=== PATIENT | female | born 1960 | race Two or more races ===

== ENCOUNTER 2022-11-26 05:29 | Day surgery (SDC) | payer MEDICAID ==
[2022-11-26] VITALS (8 sets, daily range): BP systolic 111–148; BP diastolic 58–71
[~2022-11-26] VITALS: Ht 149.9 cm; Wt 66.5 kg
[~2022-11-26 05:29] MED LIST: ringers solution, lacted 1,000 ML IV SCH
[2022-11-26] MEDS ORDERED: famotidine 20mg tablet PO ONE (05:30)
[2022-11-26] MEDS ORDERED: INSU100V9 SQ (06:06)
[2022-11-26] MEDS ORDERED: COLL30OI TOP (06:06)
[2022-11-26] MEDS ORDERED: AMOX-580 PO (06:06)
--- NOTE | 2022-11-26 06:30 | NUR ---
INITIATED IV RFA 20G , NO ISSUES.. STARTED TKO
[2022-11-26] MEDS ORDERED: BUPIVAcaine 0.5% inj/PF 30 ML ONE (06:55)
[2022-11-26] MEDS ORDERED: fentaNYL/PF 50MCG/1 ML 2ML syringe ONE (07:25)
[2022-11-26] MEDS ORDERED: propofol inj 20 ML IV ONE (07:26)
[2022-11-26] MEDS ORDERED: sevoflurane 250ml liquid IH ONE (07:36)
[2022-11-26] MEDS ORDERED: ringers solution, lacted 1,000 ML IV SCH (07:40)
[2022-11-26] MEDS ORDERED: proCHLORperazine 10 MG/2 ml inj IV PRN (07:40)
[2022-11-26] MEDS ORDERED: meperidine/PF 25mg/ml syringe IV PRN ×3 (07:40)
[2022-11-26] MEDS ORDERED: morphine 4 MG/ML inj SYRINge IV PRN (07:40)
[2022-11-26] MEDS ORDERED: ondansetron/PF 4mg/2ml inj IV PRN (07:40)
[2022-11-26] MEDS ORDERED: morphine 2 MG/ML inj. syringe IV PRN (07:40)
[2022-11-26] MEDS ORDERED: ceFAZolin 1000mg inj ONE ×2 (07:40)
[2022-11-26] MEDS ORDERED: BUPIVAcaine 0.5% inj/PF 30 ml vial IJ ONE (07:53)
[2022-11-26] MEDS ORDERED: vancomycin 1,000mg inj ONE (07:53)
--- NOTE | 2022-11-26 08:10 | NUR ---
Received from OR via BED, accompanied by Anesthesiologist and report given by Anesthesiologist. PATIENT WAKING UP, NO S/S OF PAIN, V/S WNL, SCD ON, 20G TO rUE, dressing to left foot cdi
--- NOTE | 2022-11-26 08:43 | NUR ---
blood sugar 198 dr cisse notified and stated patient ok to d/c home and to resume her lantus normal dose tonight
--- NOTE | 2022-11-26 08:50 | NUR ---
patient given crutches to ambulate and educated on how to use them.
--- NOTE | 2022-11-26 09:00 | NUR ---
PATIENT A&OX4, DENIES PAIN, V/S WNL, SCD ON, 20G TO rUE D/C, dressing to left foot cdi. I HAVE REVIEWED D/C INSTRUCTIONS WITH PATIENT and they have verbalized understanding. I GAVE CRUTCHES TO patient AND d/c home with all belongings and family gave transport home.
== END 2022-11-26 09:00 | disposition home or self-care (01) ==
LOC: PAS 05:29
PROVIDERS: ATTEND Orthopaedic Surgery Orthopaedic Trauma
DX: E11.69 Type 2 diabetes mellitus with other specified complication (principal); M86.172 Other acute osteomyelitis, left ankle and foot; E11.621 Type 2 diabetes mellitus with foot ulcer; L97.524 Non-pressure chronic ulcer of other part of left foot with necrosis of bone; E11.52 Type 2 diabetes mellitus with diabetic peripheral angiopathy with gangrene; I96 Gangrene, not elsewhere classified; D63.8 Anemia in other chronic diseases classified elsewhere; E87.1 Hypo-osmolality and hyponatremia; Z79.4 Long term (current) use of insulin; Z79.899 Other long term (current) drug therapy
CPT/HCPCS: 28820; 82948; A6222; J0690; J2704; J3010; J3370; J7030; J7120; S0020; Z7506; Z7512; A4215; A4618; A6446; A6449; A7000

== ENCOUNTER 2022-12-09 08:55 | Inpatient (IN) | payer MEDICAID ==
[~2022-12-09] VITALS: Ht 154.9 cm; Wt 65.5 kg
[~2022-12-09 08:55] MED LIST changes: +AMOX-580 PO; +COLL30OI TOP; +INSU100V9 SQ; -ringers solution, lacted 1,000 ML IV SCH
[2022-12-09] MEDS ORDERED: potassium Cl 20 mEq SR tablet PO PRN ×2 (09:35)
[2022-12-09] MEDS ORDERED: magnesium 4gm in 100ml NS 100 ML IV PRN (09:35)
[2022-12-09] MEDS ORDERED: morphine 2 MG/ML inj. syringe IV PRN (09:35)
[2022-12-09] MEDS ORDERED: ondansetron/PF 4mg/2ml inj IV PRN (09:35)
[2022-12-09] MEDS ORDERED: acetaminophen 325mg tablet PO PRN ×2 (09:35)
[2022-12-09] MEDS ORDERED: potassium Cl 40MEQ/1/2NS 520ml 520 ML IV PRN (09:35)
[2022-12-09] MEDS ORDERED: magnesium Cl slow-release 64mg tablet PO PRN (09:35)
[2022-12-09] MEDS: normal saline 1000ml 1,000 ML IV SCH ×2 (09:35→21:30)
[2022-12-09] MEDS ORDERED: DEXTROSE 15 GM of carb/4 tabs (each vial/BOTTLE has 4 tablets) PO PRN ×2 (09:45)
[2022-12-09] MEDS ORDERED: glucagon, human recombinant 1mg kit SUBCUT PRN (09:45)
[2022-12-09] MEDS ORDERED: MESSAGE TO PHARMACY PO ONE (09:45)
[2022-12-09] MEDS ORDERED: dextrose 50%-water 50ml dispensing syringe IV PRN ×2 (09:45)
[2022-12-09] MEDS ORDERED: vancomycin/NS 1 GM ADD-VANTAGE 250 ML IV ONE (11:45)
[2022-12-09] MEDS: HYDROcodone/acetaminophen 5mg/325mg tablet PO PRN (11:48)
--- NOTE | 2022-12-09 12:06 | NUR ---
Called pharmacy to retime Zosyn because patient just got to the floor and has no IV and now has Vancomycin ordered. Pharmacist will retime.
[2022-12-09 12:17] LABS: BASOPHILS # (AUTO) 0.1 X10'3 (0-0.2); BASOPHILS % (AUTO) 0.4 % (0-1); EOSINOPHILS % (AUTO) 0 % (0-6); HEMATOCRIT 31.9 % (35.0-45.0); HEMOGLOBIN 10.3 g/dl (12.0-16.0); LYMPHOCYTES # (AUTO) 0.8 X10'3 (1.1-4.8); LYMPHOCYTES % (AUTO) 3.3 % (21-51); MEAN CORPUSCULAR HEMOGLOBIN 27.8 PG (27.0-31.0); MEAN CORPUSCULAR HGB CONC 32.3 g/dL (33.0-36.5); MEAN PLATELET VOLUME 8.4 FL (7.4-10.4); MONOCYTES % (AUTO) 4.4 % (2-12); NEUTROPHILS % (AUTO) 91.9 % (42-75); PLATELET COUNT 553 X10'3 (140-440); RED BLOOD COUNT 3.71 X10'6 (4.20-5.60); WHITE BLOOD COUNT 22.8 X10'3 (4.5-11.0)
[2022-12-09] MEDS: piperacillin/tazo 3.375gm/50ml 50 ML IV SCH ×2 (12:54→16:00)
[2022-12-09 13:00] VITALS: BP 123/60
[2022-12-09 14:00] VITALS: BP 150/75
[2022-12-09 14:04] LABS: ALANINE AMINOTRANSFERASE 11 U/L (12-78); ALBUMIN 2.1 G/DL (3.4-5.0); ALBUMIN/GLOBULIN RATIO 0.3 (1.1-1.5); ALKALINE PHOSPHATASE 378 IU/L (46-116); ANION GAP 11 (8-16); ASPARTATE AMINO TRANSFERASE 15 U/L (10-37); BILIRUBIN,TOTAL 0.9 MG/DL (0.1-1.0); BLOOD UREA NITROGEN 8 MG/DL (7-18); BUN/CREATININE RATIO 11.1 (6.6-38.0); CALCIUM 9.3 MG/DL (8.5-10.1); CHLORIDE 89 MMOL/L (99-107); CREATININE 0.72 MG/DL (0.40-0.90); GLUCOSE 251 MG/DL (70-104); POTASSIUM 4.4 MMOL/L (3.5-5.1); SODIUM 125 MMOL/L (135-145); TOTAL CARBON DIOXIDE 24.9 MMOL/L (24-32); TOTAL PROTEIN 8.5 G/DL (6.4-8.2); eGFR 82 ML/MIN
[2022-12-09] MEDS ORDERED: ACET-1015 PO (16:50)
[2022-12-09] MEDS ORDERED: OMEP20CA16 PO (16:51)
[2022-12-09 18:00] VITALS: BP 129/60
--- NOTE | 2022-12-09 18:30 | NUR ---
Patient in room [facility]. I have received report from POOJA Theodore and had the opportunity to ask questions and assume patient care.
[2022-12-09] MEDS: insulin Lispro (HumaLOG) vial - multi-dose SQ SCH (19:29)
[2022-12-09] MEDS: heparin, porcine 5000 units/ml vial SQ SCH (19:30)
[2022-12-09] MEDS ORDERED: temazepam 15mg capsule PO PRN (21:00)
[2022-12-09] MEDS: insulin glargine (Lantus) pen - multi-dose SQ SCH (21:28)
[2022-12-09 22:00] VITALS: BP 130/66
[2022-12-10] MEDS: piperacillin/tazo 3.375gm/50ml 50 ML IV SCH ×3 (00:05→18:56)
[2022-12-10] MEDS: vancomycin/NS 1 GM ADD-VANTAGE 250 ML IV SCH ×2 (00:32→13:32)
[2022-12-10] MEDS: normal saline 1000ml 1,000 ML IV SCH ×2 (05:35→15:35)
[2022-12-10 06:00] VITALS: BP 128/58
--- NOTE | 2022-12-10 06:31 | NUR ---
Problems reprioritized. Patient report given, questions answered & plan of care reviewed with POOJA Salazar.
--- NOTE | 2022-12-10 06:58 | NUR ---
Patient in room [facility]. I have received report from AMA PATTON and had the opportunity to ask questions and assume patient care.
[2022-12-10 07:00] LABS: ALANINE AMINOTRANSFERASE 8 U/L (12-78); ALBUMIN 1.6 G/DL (3.4-5.0); ALBUMIN/GLOBULIN RATIO 0.3 (1.1-1.5); ALKALINE PHOSPHATASE 321 IU/L (46-116); ANION GAP 8 (8-16); ASPARTATE AMINO TRANSFERASE 21 U/L (10-37); BILIRUBIN,TOTAL 0.9 MG/DL (0.1-1.0); BLOOD UREA NITROGEN 10 MG/DL (7-18); BUN/CREATININE RATIO 14.9 (6.6-38.0); CHLORIDE 94 MMOL/L (99-107); CREATININE 0.67 MG/DL (0.40-0.90); GLUCOSE 106 MG/DL (70-104); SODIUM 129 MMOL/L (135-145); TOTAL CARBON DIOXIDE 27.2 MMOL/L (24-32); TOTAL PROTEIN 6.8 G/DL (6.4-8.2); eGFR 89 ML/MIN
[2022-12-10 07:01] LABS: BASOPHILS % (AUTO) 0.2 % (0-1); EOSINOPHILS % (AUTO) 0.1 % (0-6); HEMATOCRIT 24.7 % (35.0-45.0); HEMOGLOBIN 8.3 g/dl (12.0-16.0); LYMPHOCYTES # (AUTO) 1.2 X10'3 (1.1-4.8); LYMPHOCYTES % (AUTO) 5.8 % (21-51); MEAN CORPUSCULAR HEMOGLOBIN 28.7 PG (27.0-31.0); MEAN CORPUSCULAR HGB CONC 33.6 g/dL (33.0-36.5); MEAN CORPUSCULAR VOLUME 85.4 FL (78-98); MONOCYTES # (AUTO) 1.1 X10'3 (0-0.9); MONOCYTES % (AUTO) 5.2 % (2-12); NEUTROPHILS # (AUTO) 18.9 X10'3 (1.8-7.7); NEUTROPHILS % (AUTO) 88.7 % (42-75); PLATELET COUNT 426 X10'3 (140-440); RED CELL DISTRIBUTION WIDTH 15.4 % (11.5-14.5); WHITE BLOOD COUNT 21.3 X10'3 (4.5-11.0)
[2022-12-10] MEDS: heparin, porcine 5000 units/ml vial SQ SCH ×2 (09:26→22:37)
[2022-12-10 10:00] VITALS: BP 131/66
[2022-12-10] MEDS: HYDROcodone/acetaminophen 5mg/325mg tablet PO PRN (13:32)
[2022-12-10] MEDS: insulin Lispro (HumaLOG) vial - multi-dose SQ SCH ×2 (15:08→19:51)
[2022-12-10 18:00] VITALS: BP 128/62
--- NOTE | 2022-12-10 18:30 | NUR ---
Patient in room [facility]. I have received report from Marie PATTON and had the opportunity to ask questions and assume patient care.
[2022-12-10] MEDS ORDERED: pantoprazole 40mg Tablet.DR PO PRN (18:55)
[2022-12-10 22:00] VITALS: BP 131/60
[2022-12-10] MEDS: insulin glargine (Lantus) pen - multi-dose SQ SCH (22:35)
[2022-12-11] MEDS ORDERED: VANCOMYCIN LEVEL IV ONE (00:30)
[2022-12-11] MEDS: piperacillin/tazo 3.375gm/50ml 50 ML IV SCH ×3 (01:00→16:37)
[2022-12-11] MEDS: normal saline 1000ml 1,000 ML IV SCH ×3 (01:01→21:02)
[2022-12-11 01:40] LABS: BASOPHILS % (AUTO) 0.2 % (0-1); EOSINOPHILS % (AUTO) 0.1 % (0-6); HEMATOCRIT 23.7 % (35.0-45.0); HEMOGLOBIN 7.9 g/dl (12.0-16.0); LYMPHOCYTES % (AUTO) 4.8 % (21-51); MEAN CORPUSCULAR HEMOGLOBIN 28.4 PG (27.0-31.0); MEAN CORPUSCULAR HGB CONC 33.3 g/dL (33.0-36.5); MEAN CORPUSCULAR VOLUME 85.3 FL (78-98); MONOCYTES % (AUTO) 4.7 % (2-12); NEUTROPHILS # (AUTO) 18.6 X10'3 (1.8-7.7); NEUTROPHILS % (AUTO) 90.2 % (42-75); PLATELET COUNT 427 X10'3 (140-440); RED BLOOD COUNT 2.77 X10'6 (4.20-5.60); RED CELL DISTRIBUTION WIDTH 15.5 % (11.5-14.5); WHITE BLOOD COUNT 20.7 X10'3 (4.5-11.0)
[2022-12-11] MEDS: vancomycin/NS 1 GM ADD-VANTAGE 250 ML IV SCH ×2 (01:40→14:26)
[2022-12-11 01:51] LABS: ALANINE AMINOTRANSFERASE 10 U/L (12-78); ALBUMIN 1.6 G/DL (3.4-5.0); ALBUMIN/GLOBULIN RATIO 0.3 (1.1-1.5); ALKALINE PHOSPHATASE 327 IU/L (46-116); ASPARTATE AMINO TRANSFERASE 17 U/L (10-37); BILIRUBIN,TOTAL 0.7 MG/DL (0.1-1.0); BLOOD UREA NITROGEN 11 MG/DL (7-18); BUN/CREATININE RATIO 16.9 (6.6-38.0); CALCIUM 8.3 MG/DL (8.5-10.1); CREATININE 0.65 MG/DL (0.40-0.90); GLUCOSE 145 MG/DL (70-104); TOTAL CARBON DIOXIDE 24.2 MMOL/L (24-32); TOTAL PROTEIN 6.7 G/DL (6.4-8.2); eGFR > 90 ML/MIN
[2022-12-11 01:52] LABS: ANION GAP 9 (8-16); CHLORIDE 96 MMOL/L (99-107); POTASSIUM 3.9 MMOL/L (3.5-5.1); SODIUM 129 MMOL/L (135-145); VANCOMYCIN,TROUGH 15.5 UG/ML (6.0-14.0)
[2022-12-11 06:00] VITALS: BP 140/72
--- NOTE | 2022-12-11 06:52 | NUR ---
Problems reprioritized. Patient report given, questions answered & plan of care reviewed with Amalia PATTON.
--- NOTE | 2022-12-11 06:52 | NUR ---
Patient in room [facility]. I have received report from Roxana PATTON and had the opportunity to ask questions and assume patient care.
[2022-12-11] MEDS: heparin, porcine 5000 units/ml vial SQ SCH ×2 (07:18→21:07)
[2022-12-11] MEDS: insulin Lispro (HumaLOG) vial - multi-dose SQ SCH (09:41)
--- NOTE | 2022-12-11 10:16 | NUR ---
full linen changed
--- NOTE | 2022-12-11 11:00 | NUR ---
VS not done, patient at procedure Addendum: 12/11/22 at 1821 by Meghann Gibbs LVN Amended: Links added.
[2022-12-11] MEDS: HYDROcodone/acetaminophen 5mg/325mg tablet PO PRN (16:36)
--- NOTE | 2022-12-11 17:22 | NUR ---
Patients pain level went down from what it was before the norco was administered. It was at ten but she stated that it was now at an eight. Patient was resting comfortably.
--- NOTE | 2022-12-11 17:52 | NUR ---
I have reviewed and agree with all interventions, assessments performed and documented by NICK Zavaleta.
--- NOTE | 2022-12-11 18:32 | NUR ---
Problems reprioritized. Patient report given, questions answered & plan of care reviewed with Abdullahi PATTON.
--- NOTE | 2022-12-11 18:40 | NUR ---
Patient in room [facility]. I have received report from REA PATTON and had the opportunity to ask questions and assume patient care.
[2022-12-11] MEDS: insulin glargine (Lantus) pen - multi-dose SQ SCH (21:19)
[2022-12-12] MEDS: piperacillin/tazo 3.375gm/50ml 50 ML IV SCH ×3 (00:58→16:00)
[2022-12-12] MEDS: vancomycin/NS 1 GM ADD-VANTAGE 250 ML IV SCH ×2 (01:03→13:00)
--- NOTE | 2022-12-12 06:27 | NUR ---
Problems reprioritized. Patient report given, questions answered & plan of care reviewed with REA PATTON.
--- NOTE | 2022-12-12 06:31 | NUR ---
Patient in room [facility]. I have received report from Abdullahi PATTON and had the opportunity to ask questions and assume patient care.
[2022-12-12 06:50] LABS: BASOPHILS # (AUTO) 0.1 X10'3 (0-0.2); BASOPHILS % (AUTO) 0.4 % (0-1); EOSINOPHILS % (AUTO) 0.3 % (0-6); HEMATOCRIT 22.4 % (35.0-45.0); HEMOGLOBIN 7.5 g/dl (12.0-16.0); LYMPHOCYTES % (AUTO) 6.3 % (21-51); MEAN CORPUSCULAR HEMOGLOBIN 28.9 PG (27.0-31.0); MEAN CORPUSCULAR HGB CONC 33.6 g/dL (33.0-36.5); MEAN PLATELET VOLUME 8.1 FL (7.4-10.4); MONOCYTES # (AUTO) 0.8 X10'3 (0-0.9); MONOCYTES % (AUTO) 4.9 % (2-12); NEUTROPHILS # (AUTO) 13.9 X10'3 (1.8-7.7); NEUTROPHILS % (AUTO) 88.1 % (42-75); PLATELET COUNT 404 X10'3 (140-440); RED CELL DISTRIBUTION WIDTH 15.6 % (11.5-14.5); WHITE BLOOD COUNT 15.8 X10'3 (4.5-11.0)
[2022-12-12 07:18] LABS: ALANINE AMINOTRANSFERASE 9 U/L (12-78); ALBUMIN 1.4 G/DL (3.4-5.0); ALBUMIN/GLOBULIN RATIO 0.3 (1.1-1.5); ALKALINE PHOSPHATASE 433 IU/L (46-116); ANION GAP 7 (8-16); ASPARTATE AMINO TRANSFERASE 24 U/L (10-37); BILIRUBIN,TOTAL 0.7 MG/DL (0.1-1.0); BLOOD UREA NITROGEN 15 MG/DL (7-18); BUN/CREATININE RATIO 12.3 (6.6-38.0); CALCIUM 8.1 MG/DL (8.5-10.1); CHLORIDE 101 MMOL/L (99-107); CHOL/HDL RATIO 3.5 (0.00-4.99); CHOLESTEROL 78 MG/DL (0-200); CREATININE 1.22 MG/DL (0.40-0.90); GLUCOSE 97 MG/DL (70-104); HDL CHOLESTEROL 22 MG/DL (35-60); LDL CHOLESTEROL 39 MG/DL (50-100); MAGNESIUM 1.9 MG/DL (1.5-2.4); PHOSPHORUS 3.7 MG/DL (2.3-4.5); POTASSIUM 3.8 MMOL/L (3.5-5.1); SODIUM 131 MMOL/L (135-145); TOTAL CARBON DIOXIDE 23.3 MMOL/L (24-32); TOTAL PROTEIN 6.5 G/DL (6.4-8.2); TRIGLYCERIDES 73 MG/DL (20-135); eGFR 44 ML/MIN
[2022-12-12] MEDS: normal saline 1000ml 1,000 ML IV SCH (07:33)
[2022-12-12] MEDS: heparin, porcine 5000 units/ml vial SQ SCH (07:34)
[2022-12-12 07:39] LABS: HEMOGLOBIN A1C 9.5 % (4.5-6.2)
[2022-12-12] MEDS ORDERED: VANCOMYCIN LEVEL IV ONE (12:30)
--- NOTE | 2022-12-12 13:20 | NUR ---
Message: Shayy Surg [id number] Vanco trough critical 32.6, Pharmacy aware holding dose
--- NOTE | 2022-12-12 13:20 | NUR ---
Marni the pharmacist aware of critical vanco trough of 32.6 hold 1300 dose he will adjust medication
[2022-12-12] MEDS ORDERED: LINE600T12 PO (14:21)
[2022-12-12] MEDS ORDERED: LACT1CAP26 PO (14:21)
--- NOTE | 2022-12-12 16:05 | NUR ---
PRESSURE ULCER EDUCATION: DEFINITION: A pressure ulcer is an area of skin that breaks down when you stay in one position too long. The constant pressure against the skin reduces the blood flow to that area and the affected tissue dies. CAUSES: "Being bedridden or in a wheelchair "Fragile skin "Having a chronic condition, such as diabetes or vascular disease "Inability to move certain parts of your body without assistance "Older age "Incontinence of urine or stool SYMPTOMS: "A reddened area that DOES NOT turn white when pressed on - this can be the beginning of a pressure ulcer "A blister, deep sore or a crater - these can be advanced pressure ulcers FIRST AID: "Relieve the pressure on this area "Keep the area clean and dry "Call your primary doctor if you see any of the above symptoms "DO NOT massage the area "DO NOT use a donut shaped or ring shaped pillow- these actually interfere with the blood flow and cause complications PREVENTION: "Check for pressure ulcers everyday "Change position at least every two hours to relieve pressure "Use items that help relieve pressure- pillows, sheepskin, foam padding, and powders. "Keep skin clean and dry "Eat healthy well balanced meals "Exercise daily IF YOU SEE ANY OF THESE SYMPTOMS WHILE IN THE HOSPITAL - TELL YOUR NURSE IMMEDIATELY. IF YOU SEE ANY OF THESE SYMPTOMS WHILE AT HOME OR HAVE ANY QUESTIONS OR CONCERNS ABOUT PRESSURE ULCERS - CALL YOUR PRIMARY DOCTOR IMMEDIATELY. Addendum: 12/12/22 at 1605 by Mojgan Tolliver RN Amended: Links added.
--- NOTE | 2022-12-12 16:48 | NUR ---
Patient agreeable and appropriate for discharge. 2 PIVs removed, cannulas intact, patient tolerated well. Discharge paperwork/education reviewed/signed by patient, all questions anticipated and addressed. Encouraged patient to hand picker prescriptions from [facility] in [place]. Instructed patient to schedule and appointment for the next 2-3 days with the wound center. Patient states understanding. 1 per assist provided for transfer to w/c, patient assisted out of facility and into vehicle from staff accompanied by family.
--- NOTE | 2022-12-12 17:00 | NUR ---
I have reviewed and agree with all interventions, assessments performed and documented by NICK Zavaleta.
[2022-12-13] MEDS ORDERED: VANCOMYCIN LEVEL IV ONE (00:30)
== END 2022-12-12 16:48 | disposition home health service (06) | DRG 721 ==
LOC: SUR 3N 09:42 → UNDOADMIN 11:17 → SUR 3N 11:17
PROVIDERS: ADMIT Internal Medicine; ATTEND Internal Medicine
DX: T81.42XA Infection following a procedure, deep incisional surgical site, initial encounter (principal); N17.9 Acute kidney failure, unspecified; D63.8 Anemia in other chronic diseases classified elsewhere; L03.116 Cellulitis of left lower limb; E11.65 Type 2 diabetes mellitus with hyperglycemia; B95.2 Enterococcus as the cause of diseases classified elsewhere; Y83.8 Other surgical procedures as the cause of abnormal reaction of the patient, or of later complication, without mention of misadventure at the time of the procedure; Y92.89 Other specified places as the place of occurrence of the external cause
CPT/HCPCS: 36415; 73720; 80053; 80061; 80202; 82948; 83036; 83605; 83735; 84100; 84145; 84443; 85025; 85651; 87040; 87081; 97116; 97161; 97530; A6196; A6446; A6449; G0378; J1610; J1644; J1815; J2270; J2405; J2543; J3370; J3490; J7030; J7040

== ENCOUNTER 2022-12-17 17:39 | Emergency (ER) | payer MEDICAID ==
[~2022-12-17] VITALS: Ht 154.9 cm; Wt 60.0 kg
[~2022-12-17 17:39] MED LIST changes: -AMOX-580 PO; -COLL30OI TOP; -INSU100V9 SQ; +LACT1CAP26 PO; +LINE600T12 PO; +OMEP20CA16 PO
[2022-12-17] MEDS ORDERED: HYDROcodone/acetaminophen 5mg/325mg tablet PO ONE (21:45)
--- NOTE | 2022-12-17 21:47 | NUR ---
Pt foot rebandaged per physician. Good CSM after bandaging.
== END 2022-12-17 22:01 | disposition home or self-care (01) ==
LOC: ER 17:40
DX: Z89.412 Acquired absence of left great toe (principal); Z09 Encounter for follow-up examination after completed treatment for conditions other than malignant neoplasm; E11.9 Type 2 diabetes mellitus without complications
CPT/HCPCS: 87070; 99284; A6258; A6446

== ENCOUNTER 2022-12-18 09:08 | Inpatient (IN) | payer MEDICAID ==
[~2022-12-18] VITALS: Ht 154.9 cm; Wt 55.0 kg
[2022-12-18 10:22] LABS: BASOPHILS % (AUTO) 0.4 % (0-1); EOSINOPHILS % (AUTO) 0.7 % (0-6); HEMATOCRIT 24.5 % (35.0-45.0); LYMPHOCYTES # (AUTO) 0.8 X10'3 (1.1-4.8); LYMPHOCYTES % (AUTO) 11.6 % (21-51); MEAN CORPUSCULAR HEMOGLOBIN 28.7 PG (27.0-31.0); MEAN CORPUSCULAR HGB CONC 32.9 g/dL (33.0-36.5); MEAN CORPUSCULAR VOLUME 87.2 FL (78-98); MEAN PLATELET VOLUME 7.2 FL (7.4-10.4); MONOCYTES # (AUTO) 0.2 X10'3 (0-0.9); MONOCYTES % (AUTO) 3.4 % (2-12); NEUTROPHILS # (AUTO) 5.8 X10'3 (1.8-7.7); NEUTROPHILS % (AUTO) 83.9 % (42-75); PLATELET COUNT 341 X10'3 (140-440); RED CELL DISTRIBUTION WIDTH 16.6 % (11.5-14.5); WHITE BLOOD COUNT 6.9 X10'3 (4.5-11.0)
[2022-12-18 10:39] LABS: ALANINE AMINOTRANSFERASE 15 U/L (12-78); ALBUMIN 1.8 G/DL (3.4-5.0); ALBUMIN/GLOBULIN RATIO 0.3 (1.1-1.5); ALKALINE PHOSPHATASE 529 IU/L (46-116); ANION GAP 8 (8-16); ASPARTATE AMINO TRANSFERASE 22 U/L (10-37); BILIRUBIN,TOTAL 0.6 MG/DL (0.1-1.0); BLOOD UREA NITROGEN 13 MG/DL (7-18); BUN/CREATININE RATIO 13.1 (6.6-38.0); C-REACTIVE PROTEIN 5.91 MG/DL (0.0-0.5); CALCIUM 8.6 MG/DL (8.5-10.1); CHLORIDE 102 MMOL/L (99-107); CREATININE 0.99 MG/DL (0.40-0.90); GLUCOSE 166 MG/DL (70-104); POTASSIUM 4.1 MMOL/L (3.5-5.1); SODIUM 135 MMOL/L (135-145); TOTAL PROTEIN 7.2 G/DL (6.4-8.2); eGFR 56 ML/MIN
[2022-12-18] MEDS ORDERED: mag hydrox/Alum hydrox/simeth 30ml oral suspension PO PRN (12:30)
[2022-12-18] MEDS ORDERED: magnesium 4gm in 100ml NS 100 ML IV PRN (12:30)
[2022-12-18] MEDS ORDERED: acetaminophen 325mg tablet PO PRN (12:30)
[2022-12-18] MEDS ORDERED: glucagon, human recombinant 1mg kit SUBCUT PRN (12:30)
[2022-12-18] MEDS ORDERED: DEXTROSE 15 GM of carb/4 tabs (each vial/BOTTLE has 4 tablets) PO PRN ×2 (12:30)
[2022-12-18] MEDS ORDERED: magnesium hydroxide 30ml (MOM) UD suspension PO PRN (12:30)
[2022-12-18] MEDS ORDERED: potassium Cl 40MEQ/1/2NS 520ml 520 ML IV PRN (12:30)
[2022-12-18] MEDS ORDERED: HYDROmorphone inj. 0.5 MG/0.5 ML DISP.SYRIN IV PRN (12:30)
[2022-12-18] MEDS ORDERED: dextrose 50%-water 50ml dispensing syringe IV PRN ×2 (12:30)
[2022-12-18] MEDS ORDERED: potassium Cl 20 mEq SR tablet PO PRN ×2 (12:30)
[2022-12-18] MEDS: normal saline 1000ml 1,000 ML IV SCH (12:30)
[2022-12-18] MEDS ORDERED: MESSAGE TO PHARMACY PO ONE (12:30)
[2022-12-18] MEDS ORDERED: HYDROmorphone/PF 0.2 MG/ML SYRINGE IV PRN (12:30)
--- NOTE | 2022-12-18 13:10 | NUR ---
Patient in room [facility]. I have received report from lynne garcia and had the opportunity to ask questions and assume patient care.
[2022-12-18 13:56] VITALS: BP 142/60
[2022-12-18 18:00] VITALS: BP 146/65
--- NOTE | 2022-12-18 18:35 | NUR ---
Problems reprioritized. Patient report given, questions answered & plan of care reviewed with jos garcia.
[2022-12-18] MEDS: K and/or MAG REPLACEMENT MC SCH (20:00)
[2022-12-18] MEDS: docusate sod 100mg capsule PO SCH (20:00)
[2022-12-18] MEDS: enoxaparin 40mg/0.4ml syringe SQ SCH (20:06)
[2022-12-18] MEDS: linezolid 600mg tablet PO SCH (20:06)
[2022-12-18] MEDS: insulin glargine (Lantus) pen - multi-dose SQ SCH (21:00)
[2022-12-18 22:11] VITALS: BP 147/64
[2022-12-19] VITALS (11 sets, daily range): BP systolic 127–161; BP diastolic 61–85
[2022-12-19 04:42] LABS: BASOPHILS % (AUTO) 0.5 % (0-1); EOSINOPHILS # (AUTO) 0.1 X10'3 (0-0.9); EOSINOPHILS % (AUTO) 0.8 % (0-6); HEMOGLOBIN 7.4 g/dl (12.0-16.0); LYMPHOCYTES # (AUTO) 1.3 X10'3 (1.1-4.8); LYMPHOCYTES % (AUTO) 18.6 % (21-51); MEAN CORPUSCULAR HEMOGLOBIN 28.3 PG (27.0-31.0); MEAN CORPUSCULAR HGB CONC 32.4 g/dL (33.0-36.5); MEAN CORPUSCULAR VOLUME 87.5 FL (78-98); MEAN PLATELET VOLUME 7.2 FL (7.4-10.4); MONOCYTES # (AUTO) 0.3 X10'3 (0-0.9); NEUTROPHILS # (AUTO) 5.4 X10'3 (1.8-7.7); NEUTROPHILS % (AUTO) 76.1 % (42-75); PLATELET COUNT 302 X10'3 (140-440); RED BLOOD COUNT 2.63 X10'6 (4.20-5.60); RED CELL DISTRIBUTION WIDTH 16.9 % (11.5-14.5); WHITE BLOOD COUNT 7.1 X10'3 (4.5-11.0)
[2022-12-19 05:08] LABS: ALANINE AMINOTRANSFERASE 12 U/L (12-78); ALBUMIN 1.6 G/DL (3.4-5.0); ALBUMIN/GLOBULIN RATIO 0.3 (1.1-1.5); ALKALINE PHOSPHATASE 517 IU/L (46-116); ANION GAP 4 (8-16); ASPARTATE AMINO TRANSFERASE 22 U/L (10-37); BILIRUBIN,TOTAL 0.5 MG/DL (0.1-1.0); BLOOD UREA NITROGEN 11 MG/DL (7-18); BUN/CREATININE RATIO 12.6 (6.6-38.0); CALCIUM 8.1 MG/DL (8.5-10.1); CHLORIDE 106 MMOL/L (99-107); CREATININE 0.87 MG/DL (0.40-0.90); GLUCOSE 117 MG/DL (70-104); MAGNESIUM 1.8 MG/DL (1.5-2.4); POTASSIUM 3.9 MMOL/L (3.5-5.1); SODIUM 136 MMOL/L (135-145); TOTAL CARBON DIOXIDE 26.5 MMOL/L (24-32); TOTAL PROTEIN 6.8 G/DL (6.4-8.2); eGFR 66 ML/MIN
[2022-12-19] MEDS: normal saline 1000ml 1,000 ML IV SCH ×2 (05:42→13:30)
--- NOTE | 2022-12-19 06:10 | NUR ---
Patient in room [facility]. I have received report from POOJA Matthew and had the opportunity to ask questions and assume patient care.
--- NOTE | 2022-12-19 06:14 | NUR ---
reported to days. noted pt ready for pre op today at noon. pt has ekg ordered but needs order for coag and cxr.
[2022-12-19] MEDS: K and/or MAG REPLACEMENT MC SCH ×2 (08:00→20:00)
[2022-12-19] MEDS: docusate sod 100mg capsule PO SCH ×2 (08:30→20:32)
[2022-12-19] MEDS: linezolid 600mg tablet PO SCH ×2 (08:31→20:32)
[2022-12-19] MEDS ORDERED: INSU100V9 SQ (08:44)
[2022-12-19] MEDS ORDERED: HYDROmorphone 1 mg/ml syringe IV PRN (08:50)
[2022-12-19] MEDS ORDERED: pantoprazole 40mg Tablet.DR PO PRN (09:55)
[2022-12-19 10:44] LABS: PRE OP INR 1.2 INR; PRE OP PROTIME 12.5 SECONDS (9.0-12.0)
[2022-12-19] MEDS ORDERED: proCHLORperazine 10 MG/2 ml inj IV PRN (12:10)
[2022-12-19] MEDS ORDERED: fentaNYL/PF 50MCG/1 ML 2ML syringe IV PRN ×2 (12:10)
[2022-12-19] MEDS ORDERED: labetalol 20mg/4ml (5mg/ml) syringe IV PRN (12:10)
[2022-12-19] MEDS ORDERED: acetaminophen 1,000mg/100ml IV 100 ML IV PRN (12:10)
[2022-12-19] MEDS ORDERED: morphine 4 MG/ML inj SYRINge IV PRN (12:10)
[2022-12-19] MEDS ORDERED: meperidine/PF 25mg/ml syringe IV PRN (12:10)
[2022-12-19] MEDS ORDERED: hydrALAZINE 20mg/ml inj. IV PRN (12:10)
[2022-12-19] MEDS ORDERED: ondansetron/PF 4mg/2ml inj IV PRN (12:10)
[2022-12-19] MEDS ORDERED: ringers solution, lacted 1,000 ML IV SCH (12:10)
[2022-12-19] MEDS ORDERED: morphine 2 MG/ML inj. syringe IV PRN (12:10)
[2022-12-19] MEDS ORDERED: ondansetron/PF 4mg/2ml inj ONE (12:37)
[2022-12-19] MEDS ORDERED: sevoflurane 250ml liquid IH ONE (12:37)
[2022-12-19] MEDS ORDERED: fentaNYL/PF 50MCG/1 ML 2ML syringe ONE (12:58)
[2022-12-19] MEDS ORDERED: LIDOcaine 2% (20mg/ml) 5ml vial ONE (13:10)
[2022-12-19] MEDS ORDERED: propofol inj 20 ML IV ONE (13:10)
[2022-12-19] MEDS ORDERED: 0.9 % SODIUM CHLORIDE 10 ML VIAL ONE (13:18)
[2022-12-19] MEDS ORDERED: ePHEDrine 50MG/ML INJ. ONE (13:18)
--- NOTE | 2022-12-19 13:23 | NUR ---
Received from OR via HOSPITAL BED, accompanied by AnesthesiologistDR BUSH and report given by Anesthesiolgist. PT PRESENT WITH 20G LEFT FOREARM, DRESSING ON LEFT LFOOT CDI, VSS. Addendum: 12/19/22 at 1405 by Kami Gomez RN, RN Amended: Links added.
--- NOTE | 2022-12-19 13:53 | NUR ---
Per EMR pt with T2DM, current A1c 10.1%. Pt admit for ischemic left foot with h/o osteomyelitis and amputation of the first toe. Pt just returned from OR, s/p I&D of left foot today. Noted pt receiving Zyvox. Pt would benefit from DM and low tyramine nutrition therapy educations once appropriate. Pt on a CHO controlled diet, documented with 25% PO intake of first meal. [facility] 12/17. Will continue to follow closely and monitor need for nutrition intervention pending trends in PO intake. Recommendations: 1) Continue CHO controlled diet 2) Monitor need for ONS/additional protein 3) Routine bowel care 4) Weekly scaled weights 5) DM and low tyramine nutrition therapy educations once appropriate; A1c 10.1% Addendum: 12/19/22 at [address] Amended: Links added.
--- NOTE | 2022-12-19 14:10 | NUR ---
Received report from [facility]ING CAPTAINKami
--- NOTE | 2022-12-19 14:23 | NUR ---
Report called to receiving nurse RAHEL PATTON. Transferred via HOSPITAL BED TO ROOM 346A WITH FAMILY. BED IN LOW LOCKED POSITION WITH CALL LIGHT IN REACH, PT HOOKED UP TO VITAL MACHINE. Belongings WERE LEFT IN PT ROOM 346A. Special Issues communicated to receiving nurse. Addendum: 12/19/22 at 1442 by Kami Gomez RN, RN Amended: Links added.
[2022-12-19] MEDS ORDERED: GABA-530 PO (15:04)
[2022-12-19 15:21] LABS: HEMATOCRIT 25.5 % (35.0-45.0); HEMOGLOBIN 8.1 g/dl (12.0-16.0); MEAN CORPUSCULAR HEMOGLOBIN 28.4 PG (27.0-31.0); MEAN CORPUSCULAR HGB CONC 31.9 g/dL (33.0-36.5); MEAN CORPUSCULAR VOLUME 88.9 FL (78-98); MEAN PLATELET VOLUME 6.9 FL (7.4-10.4); PLATELET COUNT 288 X10'3 (140-440); RED BLOOD COUNT 2.87 X10'6 (4.20-5.60); RED CELL DISTRIBUTION WIDTH 16.8 % (11.5-14.5); WHITE BLOOD COUNT 7.9 X10'3 (4.5-11.0)
[2022-12-19 16:05] LABS: % IRON SATURATION 49 % (11-46); ANISOCYTOSIS 1+; IRON 83 UG/DL (49-151); PLATELET ESTIMATE NORMAL; TOTAL CELLS COUNTED 100; TOTAL IRON BINDING CAPACITY 169 UG/DL (259-388)
--- NOTE | 2022-12-19 18:19 | NUR ---
Patient in room [facility]. I have received report from POOJA Wu and had the opportunity to ask questions and assume patient care.
--- NOTE | 2022-12-19 18:20 | NUR ---
Problems reprioritized. Patient report given, questions answered & plan of care reviewed with POOJA William.
[2022-12-19] MEDS ORDERED: linezolid 600mg tablet PO SCH (20:00)
[2022-12-19] MEDS: lactobacillus rhamnosus 10,000 MMU CELLS/CAPSULE PO SCH (20:32)
[2022-12-19] MEDS: enoxaparin 40mg/0.4ml syringe SQ SCH (20:37)
[2022-12-19] MEDS: insulin glargine (Lantus) pen - multi-dose SQ SCH (21:00)
[2022-12-20] VITALS (10 sets, daily range): BP systolic 133–170; BP diastolic 64–89
[2022-12-20] MEDS: normal saline 1000ml 1,000 ML IV SCH ×2 (00:04→15:46)
[2022-12-20 04:56] LABS: BASOPHILS % (AUTO) 0.6 % (0-1); EOSINOPHILS % (AUTO) 0.5 % (0-6); HEMOGLOBIN 7.2 g/dl (12.0-16.0); LYMPHOCYTES % (AUTO) 17.4 % (21-51); MEAN CORPUSCULAR HEMOGLOBIN 28.6 PG (27.0-31.0); MEAN CORPUSCULAR HGB CONC 32.7 g/dL (33.0-36.5); MEAN CORPUSCULAR VOLUME 87.5 FL (78-98); MEAN PLATELET VOLUME 7.2 FL (7.4-10.4); MONOCYTES # (AUTO) 0.2 X10'3 (0-0.9); MONOCYTES % (AUTO) 2.8 % (2-12); NEUTROPHILS # (AUTO) 4.7 X10'3 (1.8-7.7); NEUTROPHILS % (AUTO) 78.7 % (42-75); PLATELET COUNT 228 X10'3 (140-440); RED BLOOD COUNT 2.51 X10'6 (4.20-5.60); RED CELL DISTRIBUTION WIDTH 17.2 % (11.5-14.5); WHITE BLOOD COUNT 5.9 X10'3 (4.5-11.0)
[2022-12-20 05:06] LABS: ALANINE AMINOTRANSFERASE 8 U/L (12-78); ALBUMIN 1.7 G/DL (3.4-5.0); ALBUMIN/GLOBULIN RATIO 0.3 (1.1-1.5); ALKALINE PHOSPHATASE 523 IU/L (46-116); ANION GAP 6 (8-16); ASPARTATE AMINO TRANSFERASE 22 U/L (10-37); BILIRUBIN,TOTAL 0.6 MG/DL (0.1-1.0); BLOOD UREA NITROGEN 13 MG/DL (7-18); BUN/CREATININE RATIO 14.9 (6.6-38.0); CALCIUM 8.1 MG/DL (8.5-10.1); CHLORIDE 104 MMOL/L (99-107); CREATININE 0.87 MG/DL (0.40-0.90); GLUCOSE 176 MG/DL (70-104); MAGNESIUM 1.9 MG/DL (1.5-2.4); POTASSIUM 4.5 MMOL/L (3.5-5.1); SODIUM 135 MMOL/L (135-145); TOTAL CARBON DIOXIDE 25.2 MMOL/L (24-32); TOTAL PROTEIN 6.8 G/DL (6.4-8.2); eGFR 66 ML/MIN
--- NOTE | 2022-12-20 06:24 | NUR ---
Problems reprioritized. Patient report given, questions answered & plan of care reviewed with POOJA Singer.
--- NOTE | 2022-12-20 07:03 | NUR ---
Patient in room [facility] 346. I have received report from Nataliia PATTON and had the opportunity to ask questions and assume patient care.
[2022-12-20] MEDS: K and/or MAG REPLACEMENT MC SCH ×2 (07:06→19:12)
[2022-12-20] MEDS: lactobacillus rhamnosus 10,000 MMU CELLS/CAPSULE PO SCH ×2 (07:43→19:35)
[2022-12-20] MEDS: docusate sod 100mg capsule PO SCH ×2 (07:43→19:35)
[2022-12-20] MEDS: linezolid 600mg tablet PO SCH ×2 (07:44→19:34)
--- NOTE | 2022-12-20 12:28 | NUR ---
Nutrition consult re: pt is diabetic and had I&D, would benefit from protein. Noted pt documented with 50% PO intake of two most recent meals. Attempted visit with pt at bedside however pt unavailable. Recommend Ensure Plus HP BID to optimize nutrient intake, to be sent pending physician approval in EMR. Will continue to follow. Addendum: 12/20/22 at [address] Amended: Links added.
[2022-12-20] MEDS: insulin Lispro (HumaLOG) vial - multi-dose SQ SCH ×2 (14:19→19:38)
[2022-12-20] MEDS: LACTOSE-REDUCED FOOD 237ML LIQUID PO SCH (17:30)
--- NOTE | 2022-12-20 18:34 | NUR ---
Problems reprioritized. Patient report given, questions answered & plan of care reviewed with Star RN.
--- NOTE | 2022-12-20 19:05 | NUR ---
Patient in room [facility] 346. I have received report from DOEMNIC PATTNO and had the opportunity to ask questions and assume patient care.
[2022-12-20 19:18] LABS: HEMATOCRIT 29.3 % (35.0-45.0); HEMOGLOBIN 9.7 g/dl (12.0-16.0); MEAN CORPUSCULAR HEMOGLOBIN 28.9 PG (27.0-31.0); MEAN CORPUSCULAR VOLUME 87.7 FL (78-98); MEAN PLATELET VOLUME 7.4 FL (7.4-10.4); PLATELET COUNT 217 X10'3 (140-440); RED BLOOD COUNT 3.35 X10'6 (4.20-5.60); WHITE BLOOD COUNT 6.5 X10'3 (4.5-11.0)
[2022-12-20] MEDS: enoxaparin 40mg/0.4ml syringe SQ SCH (19:35)
[2022-12-20] MEDS: insulin glargine (Lantus) pen - multi-dose SQ SCH (21:32)
[2022-12-21] MEDS: normal saline 1000ml 1,000 ML IV SCH ×2 (02:57→17:00)
[2022-12-21 04:14] LABS: BASOPHILS % (AUTO) 0.6 % (0-1); EOSINOPHILS # (AUTO) 0.1 X10'3 (0-0.9); HEMATOCRIT 27.9 % (35.0-45.0); HEMOGLOBIN 9.1 g/dl (12.0-16.0); LYMPHOCYTES % (AUTO) 15.3 % (21-51); MEAN CORPUSCULAR HEMOGLOBIN 28.8 PG (27.0-31.0); MEAN CORPUSCULAR HGB CONC 32.7 g/dL (33.0-36.5); MEAN CORPUSCULAR VOLUME 88.2 FL (78-98); MEAN PLATELET VOLUME 7.3 FL (7.4-10.4); MONOCYTES # (AUTO) 0.2 X10'3 (0-0.9); MONOCYTES % (AUTO) 3.3 % (2-12); NEUTROPHILS # (AUTO) 5.4 X10'3 (1.8-7.7); NEUTROPHILS % (AUTO) 79.8 % (42-75); PLATELET COUNT 192 X10'3 (140-440); RED BLOOD COUNT 3.16 X10'6 (4.20-5.60); RED CELL DISTRIBUTION WIDTH 15.8 % (11.5-14.5); WHITE BLOOD COUNT 6.8 X10'3 (4.5-11.0)
[2022-12-21 05:01] LABS: ALANINE AMINOTRANSFERASE 10 U/L (12-78); ALBUMIN 1.6 G/DL (3.4-5.0); ALBUMIN/GLOBULIN RATIO 0.3 (1.1-1.5); ALKALINE PHOSPHATASE 464 IU/L (46-116); ANION GAP 9 (8-16); ASPARTATE AMINO TRANSFERASE 16 U/L (10-37); BILIRUBIN,TOTAL 0.9 MG/DL (0.1-1.0); BLOOD UREA NITROGEN 16 MG/DL (7-18); BUN/CREATININE RATIO 18.4 (6.6-38.0); CALCIUM 8.1 MG/DL (8.5-10.1); CHLORIDE 107 MMOL/L (99-107); CREATININE 0.87 MG/DL (0.40-0.90); GLUCOSE 66 MG/DL (70-104); MAGNESIUM 1.7 MG/DL (1.5-2.4); POTASSIUM 3.9 MMOL/L (3.5-5.1); SODIUM 139 MMOL/L (135-145); TOTAL CARBON DIOXIDE 23.5 MMOL/L (24-32); TOTAL PROTEIN 6.8 G/DL (6.4-8.2); eGFR 66 ML/MIN
--- NOTE | 2022-12-21 06:17 | NUR ---
Problems reprioritized. Patient report given, questions answered & plan of care reviewed with DOMENIC PATTON.
--- NOTE | 2022-12-21 07:06 | NUR ---
Patient in room [facility] 346. I have received report from Star PATTON and had the opportunity to ask questions and assume patient care.
[2022-12-21 07:08] VITALS: BP 163/79
[2022-12-21] MEDS: lactobacillus rhamnosus 10,000 MMU CELLS/CAPSULE PO SCH ×2 (07:57→19:31)
[2022-12-21] MEDS: linezolid 600mg tablet PO SCH ×2 (07:57→19:31)
[2022-12-21] MEDS: docusate sod 100mg capsule PO SCH ×2 (07:57→19:30)
[2022-12-21] MEDS: K and/or MAG REPLACEMENT MC SCH ×2 (08:00→20:00)
[2022-12-21] MEDS: LACTOSE-REDUCED FOOD 237ML LIQUID PO SCH ×2 (08:00→17:40)
[2022-12-21] MEDS ORDERED: bisacodyl 10mg suppository rectal RC PRN (09:35)
[2022-12-21 12:00] VITALS: BP 150/75
[2022-12-21 18:30] VITALS: BP 159/80
--- NOTE | 2022-12-21 18:43 | NUR ---
Problems reprioritized. Patient report given, questions answered & plan of care reviewed with Cassandra PATTON.
[2022-12-21] MEDS: enoxaparin 40mg/0.4ml syringe SQ SCH (19:31)
[2022-12-21] MEDS: insulin Lispro (HumaLOG) vial - multi-dose SQ SCH (19:33)
[2022-12-21] MEDS: insulin glargine (Lantus) pen - multi-dose SQ SCH (21:08)
[2022-12-21] MEDS: polyethylene glycol 3350 17gm powd pack PO SCH (21:11)
[2022-12-21 22:00] VITALS: BP 127/73
[2022-12-22] MEDS: normal saline 1000ml 1,000 ML IV SCH ×2 (05:02→17:55)
[2022-12-22 06:02] LABS: ALANINE AMINOTRANSFERASE 8 U/L (12-78); ALBUMIN 1.6 G/DL (3.4-5.0); ALBUMIN/GLOBULIN RATIO 0.3 (1.1-1.5); ALKALINE PHOSPHATASE 425 IU/L (46-116); ANION GAP 9 (8-16); ASPARTATE AMINO TRANSFERASE 16 U/L (10-37); BILIRUBIN,TOTAL 0.7 MG/DL (0.1-1.0); BLOOD UREA NITROGEN 12 MG/DL (7-18); BUN/CREATININE RATIO 14.1 (6.6-38.0); CALCIUM 7.9 MG/DL (8.5-10.1); CHLORIDE 107 MMOL/L (99-107); CREATININE 0.85 MG/DL (0.40-0.90); GLUCOSE 62 MG/DL (70-104); MAGNESIUM 1.7 MG/DL (1.5-2.4); POTASSIUM 3.5 MMOL/L (3.5-5.1); SODIUM 141 MMOL/L (135-145); TOTAL CARBON DIOXIDE 24.9 MMOL/L (24-32); TOTAL PROTEIN 6.5 G/DL (6.4-8.2); eGFR 67 ML/MIN
[2022-12-22 06:07] LABS: BASOPHILS % (AUTO) 0.4 % (0-1); EOSINOPHILS # (AUTO) 0.1 X10'3 (0-0.9); EOSINOPHILS % (AUTO) 1.1 % (0-6); HEMOGLOBIN 9.6 g/dl (12.0-16.0); LYMPHOCYTES % (AUTO) 17.9 % (21-51); MEAN CORPUSCULAR HEMOGLOBIN 28.7 PG (27.0-31.0); MEAN CORPUSCULAR HGB CONC 33.1 g/dL (33.0-36.5); MEAN CORPUSCULAR VOLUME 86.7 FL (78-98); MEAN PLATELET VOLUME 7.5 FL (7.4-10.4); MONOCYTES # (AUTO) 0.2 X10'3 (0-0.9); MONOCYTES % (AUTO) 3.8 % (2-12); NEUTROPHILS # (AUTO) 4.3 X10'3 (1.8-7.7); NEUTROPHILS % (AUTO) 76.8 % (42-75); PLATELET COUNT 166 X10'3 (140-440); RED BLOOD COUNT 3.35 X10'6 (4.20-5.60); RED CELL DISTRIBUTION WIDTH 15.9 % (11.5-14.5); WHITE BLOOD COUNT 5.7 X10'3 (4.5-11.0)
[2022-12-22] MEDS: LACTOSE-REDUCED FOOD 237ML LIQUID PO SCH ×2 (07:14→17:55)
--- NOTE | 2022-12-22 07:25 | NUR ---
Patient in room [facility]. I have received report from Camille PATTON and had the opportunity to ask questions and assume patient care. Addendum: 12/22/22 at 0769 by Lucrecia Rodriguez RN Correction From February POOJA.
[2022-12-22 07:29] VITALS: BP 167/79
[2022-12-22] MEDS: K and/or MAG REPLACEMENT MC SCH ×3 (07:37→20:00)
[2022-12-22] MEDS: docusate sod 100mg capsule PO SCH ×2 (07:40→20:43)
[2022-12-22] MEDS: linezolid 600mg tablet PO SCH ×2 (07:40→20:41)
[2022-12-22] MEDS: lactobacillus rhamnosus 10,000 MMU CELLS/CAPSULE PO SCH ×2 (07:40→20:43)
[2022-12-22 11:49] VITALS: BP 166/71
[2022-12-22 12:54] VITALS: BP 166/71
[2022-12-22] MEDS ORDERED: potassium Cl 20 mEq SR tablet PO PRN ×2 (15:00)
[2022-12-22] MEDS ORDERED: magnesium 4gm in 100ml NS 100 ML IV PRN (15:00)
[2022-12-22] MEDS ORDERED: potassium Cl 40MEQ/1/2NS 520ml 520 ML IV PRN (15:00)
[2022-12-22] MEDS ORDERED: metoprolol tartrate 50mg tablet PO ONE (15:05)
[2022-12-22 18:00] VITALS: BP 164/66
--- NOTE | 2022-12-22 18:35 | NUR ---
Problems reprioritized. Patient report given, questions answered & plan of care reviewed with Kisha Beard RN.
--- NOTE | 2022-12-22 18:40 | NUR ---
Patient in room [facility]. I have received report from DOMENIC PATTON and had the opportunity to ask questions and assume patient care.
[2022-12-22] MEDS: metoprolol tartrate 25mg tablet PO SCH (20:42)
[2022-12-22] MEDS: enoxaparin 40mg/0.4ml syringe SQ SCH (20:44)
[2022-12-22] MEDS: polyethylene glycol 3350 17gm powd pack PO SCH (20:44)
[2022-12-22] MEDS: insulin glargine (Lantus) pen - multi-dose SQ SCH (21:00)
[2022-12-22 22:00] VITALS: BP 160/76
[2022-12-23] VITALS (21 sets, daily range): BP systolic 130–177; BP diastolic 60–85
[2022-12-23] MEDS: normal saline 1000ml 1,000 ML IV SCH ×2 (05:56→19:15)
--- NOTE | 2022-12-23 06:30 | NUR ---
Problems reprioritized. Patient report given, questions answered & plan of care reviewed with FELIPE PATTON.
[2022-12-23 06:44] LABS: BASOPHILS % (AUTO) 0.9 % (0-1); EOSINOPHILS # (AUTO) 0.1 X10'3 (0-0.9); EOSINOPHILS % (AUTO) 1.2 % (0-6); HEMATOCRIT 27.9 % (35.0-45.0); HEMOGLOBIN 9.3 g/dl (12.0-16.0); LYMPHOCYTES # (AUTO) 0.9 X10'3 (1.1-4.8); LYMPHOCYTES % (AUTO) 19.9 % (21-51); MEAN CORPUSCULAR HGB CONC 33.3 g/dL (33.0-36.5); MEAN CORPUSCULAR VOLUME 87.1 FL (78-98); MEAN PLATELET VOLUME 7.8 FL (7.4-10.4); MONOCYTES # (AUTO) 0.1 X10'3 (0-0.9); MONOCYTES % (AUTO) 3.2 % (2-12); NEUTROPHILS # (AUTO) 3.3 X10'3 (1.8-7.7); NEUTROPHILS % (AUTO) 74.8 % (42-75); PLATELET COUNT 122 X10'3 (140-440); RED BLOOD COUNT 3.21 X10'6 (4.20-5.60); RED CELL DISTRIBUTION WIDTH 15.8 % (11.5-14.5); WHITE BLOOD COUNT 4.4 X10'3 (4.5-11.0)
[2022-12-23 06:58] LABS: ALANINE AMINOTRANSFERASE 6 U/L (12-78); ALBUMIN 1.7 G/DL (3.4-5.0); ALBUMIN/GLOBULIN RATIO 0.3 (1.1-1.5); ALKALINE PHOSPHATASE 409 IU/L (46-116); ANION GAP 8 (8-16); ASPARTATE AMINO TRANSFERASE 18 U/L (10-37); BILIRUBIN,TOTAL 0.7 MG/DL (0.1-1.0); BLOOD UREA NITROGEN 14 MG/DL (7-18); BUN/CREATININE RATIO 15.4 (6.6-38.0); CALCIUM 7.9 MG/DL (8.5-10.1); CHLORIDE 108 MMOL/L (99-107); CREATININE 0.91 MG/DL (0.40-0.90); GLUCOSE 154 MG/DL (70-104); MAGNESIUM 1.8 MG/DL (1.5-2.4); POTASSIUM 3.8 MMOL/L (3.5-5.1); SODIUM 140 MMOL/L (135-145); TOTAL CARBON DIOXIDE 23.8 MMOL/L (24-32); TOTAL PROTEIN 6.6 G/DL (6.4-8.2); eGFR 62 ML/MIN
[2022-12-23] MEDS: LACTOSE-REDUCED FOOD 237ML LIQUID PO SCH ×2 (07:30→17:30)
[2022-12-23] MEDS: metoprolol tartrate 25mg tablet PO SCH ×2 (07:59→20:55)
[2022-12-23] MEDS: linezolid 600mg tablet PO SCH ×2 (07:59→20:52)
[2022-12-23] MEDS: lactobacillus rhamnosus 10,000 MMU CELLS/CAPSULE PO SCH ×2 (08:00→20:52)
[2022-12-23] MEDS: docusate sod 100mg capsule PO SCH ×2 (08:00→20:56)
[2022-12-23] MEDS: K and/or MAG REPLACEMENT MC SCH ×3 (08:00→20:00)
--- NOTE | 2022-12-23 13:39 | NUR ---
F/u 12/23: Pt PO improving this LOS ~78% avg carb controlled meals w/ 50% first two Ensures 0% next two though was receiving Ensure High Proteins not Ensure Plus High Proteins; dietary notified. Pt meeting estimated needs w/ current intake trends currently NPO to OR for L BKA today per EMR. If current PO meal trends persist post-op would benefit from changing Ensure Plus to Diallo smoothie BIDBD. LBM 2 per EMR. Will continue to follow. Recommendations: 1) Continue CHO controlled diet 2) Ensure Plus HP BIDBD, if current PO trends persists change to Diallo smoothie BIDBD for wound healing-pending L BKA today 3) Routine bowel care 4) Weekly scaled weights 5) DM and low tyramine nutrition therapy educations once appropriate; A1c 10.1% Addendum: 12/23/22 at [address] Amended: Links added.
[2022-12-23] MEDS ORDERED: hydrALAZINE 20mg/ml inj. IV PRN (14:55)
[2022-12-23] MEDS ORDERED: labetalol 20mg/4ml (5mg/ml) syringe IV PRN (14:55)
[2022-12-23] MEDS ORDERED: ringers solution, lacted 1,000 ML IV SCH (14:55)
[2022-12-23] MEDS ORDERED: ondansetron/PF 4mg/2ml inj IV PRN (14:55)
[2022-12-23] MEDS ORDERED: fentaNYL/PF 50MCG/1 ML 2ML syringe IV PRN ×2 (14:55)
[2022-12-23] MEDS ORDERED: morphine 2 MG/ML inj. syringe IV PRN (14:55)
[2022-12-23] MEDS ORDERED: LIDOcaine 2% (20mg/ml) 5ml vial ONE (15:01)
[2022-12-23] MEDS ORDERED: sevoflurane 250ml liquid IH ONE (15:01)
[2022-12-23] MEDS ORDERED: midazolam 1 mg/ML 2ml injection ONE (15:02)
[2022-12-23] MEDS ORDERED: propofol inj 20 ML IV ONE (15:03)
[2022-12-23] MEDS ORDERED: LIDOcaine 1%/PF 5ML 10 MG/ML VIAL ONE (15:03)
[2022-12-23] MEDS ORDERED: ondansetron/PF 4mg/2ml inj ONE (15:03)
[2022-12-23] MEDS ORDERED: vancomycin 1,000mg inj ONE (15:04)
[2022-12-23] MEDS ORDERED: ceFAZolin 1000mg inj ONE ×2 (15:15)
--- NOTE | 2022-12-23 16:24 | NUR ---
Received from OR via , accompanied by Anesthesiologist BINU and report given by Anesthesiolgist. PT IS DROWSY YET ABLE TO UNDERSTAND SOME SLOVENIAN COMMANDS. PT C/O PAIN AT A 10. LT AMPUTATION BKA DRESSED WITH GAUZE AND TEE BANDAGE; CDI. VSS Addendum: 12/23/22 at 1715 by Tabitha Alvarez RN Amended: Links added.
[2022-12-23] MEDS: morphine 4 MG/ML inj SYRINge IV PRN ×2 (17:21→19:20)
--- NOTE | 2022-12-23 17:44 | NUR ---
Report called to receiving nurse. Transferred via PTS BED AND Belongings ARE STILL IN PTS ROOM. FAMILY PRESENT WHEN TRANSFERRING PT BACK TO ROOM. PAIN IS WELL CONTROLLED. VSS PACU NURSE ATTACHED MONITOR TO PATIENT. PLACED BED IN LOWEST POSITION AND GAVE PT CALL LIGHT. FLOOR STAFF AWARE OF PTS RETURN TO FLOOR. Special Issues communicated to receiving nurse. Addendum: 12/23/22 at 1817 by Tabitha Alvarez RN Amended: Links added.
--- NOTE | 2022-12-23 17:45 | NUR ---
Patient in room [facility]. I have received report from Cami PATTON and had the opportunity to ask questions and assume patient care.patient on post ops, stump site CDI, Report given to Abdullahi PATTON
[2022-12-23] MEDS: HYDROcodone/acetaminophen 10/325mg tab PO PRN (20:54)
[2022-12-23] MEDS: insulin glargine (Lantus) pen - multi-dose SQ SCH (21:00)
[2022-12-23] MEDS: polyethylene glycol 3350 17gm powd pack PO SCH (21:01)
[2022-12-23] MEDS: enoxaparin 40mg/0.4ml syringe SQ SCH (21:06)
[2022-12-24 02:00] VITALS: BP 111/64
[2022-12-24 06:00] VITALS: BP 139/64
[2022-12-24] MEDS: normal saline 1000ml 1,000 ML IV SCH ×3 (06:00→22:57)
--- NOTE | 2022-12-24 06:17 | NUR ---
Problems reprioritized. Patient report given, questions answered & plan of care reviewed with FELIPE PATTON.
--- NOTE | 2022-12-24 06:24 | NUR ---
Patient in room [facility] 346. I have received report from javi garcia and had the opportunity to ask questions and assume patient care.
[2022-12-24] MEDS: LACTOSE-REDUCED FOOD 237ML LIQUID PO SCH (07:30)
[2022-12-24] MEDS: docusate sod 100mg capsule PO SCH ×2 (07:37→20:46)
[2022-12-24] MEDS: lactobacillus rhamnosus 10,000 MMU CELLS/CAPSULE PO SCH ×2 (07:38→20:42)
[2022-12-24] MEDS: metoprolol tartrate 25mg tablet PO SCH ×2 (07:38→20:42)
[2022-12-24] MEDS: linezolid 600mg tablet PO SCH (07:38)
[2022-12-24] MEDS: HYDROcodone/acetaminophen 10/325mg tab PO PRN (07:38)
[2022-12-24 07:42] LABS: MAGNESIUM 1.6 MG/DL (1.5-2.4)
[2022-12-24] MEDS: K and/or MAG REPLACEMENT MC SCH ×2 (08:00→20:00)
[2022-12-24 10:00] VITALS: BP 109/74
[2022-12-24 13:07] LABS: ALANINE AMINOTRANSFERASE 10 U/L (12-78); ALBUMIN 1.6 G/DL (3.4-5.0); ALBUMIN/GLOBULIN RATIO 0.4 (1.1-1.5); ALKALINE PHOSPHATASE 397 IU/L (46-116); ANION GAP 14 (8-16); ASPARTATE AMINO TRANSFERASE 20 U/L (10-37); BILIRUBIN,TOTAL 0.6 MG/DL (0.1-1.0); BLOOD UREA NITROGEN 13 MG/DL (7-18); BUN/CREATININE RATIO 15.5 (6.6-38.0); CALCIUM 7.8 MG/DL (8.5-10.1); CHLORIDE 108 MMOL/L (99-107); CREATININE 0.84 MG/DL (0.40-0.90); GLUCOSE 148 MG/DL (70-104); POTASSIUM 3.8 MMOL/L (3.5-5.1); SODIUM 142 MMOL/L (135-145); TOTAL CARBON DIOXIDE 19.7 MMOL/L (24-32); TOTAL PROTEIN 5.9 G/DL (6.4-8.2); eGFR 68 ML/MIN
[2022-12-24 13:08] LABS: BASOPHILS # (AUTO) 0.1 X10'3 (0-0.2); BASOPHILS % (AUTO) 1.3 % (0-1); EOSINOPHILS % (AUTO) 0.8 % (0-6); HEMATOCRIT 23.9 % (35.0-45.0); HEMOGLOBIN 7.7 g/dl (12.0-16.0); LYMPHOCYTES # (AUTO) 0.8 X10'3 (1.1-4.8); LYMPHOCYTES % (AUTO) 19.6 % (21-51); MEAN CORPUSCULAR HEMOGLOBIN 28.2 PG (27.0-31.0); MEAN CORPUSCULAR HGB CONC 32.1 g/dL (33.0-36.5); MEAN CORPUSCULAR VOLUME 87.9 FL (78-98); MEAN PLATELET VOLUME 8.8 FL (7.4-10.4); MONOCYTES # (AUTO) 0.1 X10'3 (0-0.9); MONOCYTES % (AUTO) 2.6 % (2-12); NEUTROPHILS # (AUTO) 3.3 X10'3 (1.8-7.7); NEUTROPHILS % (AUTO) 75.7 % (42-75); PLATELET COUNT 88 X10'3 (140-440); RED BLOOD COUNT 2.72 X10'6 (4.20-5.60); RED CELL DISTRIBUTION WIDTH 15.7 % (11.5-14.5); WHITE BLOOD COUNT 4.3 X10'3 (4.5-11.0)
[2022-12-24] MEDS: insulin Lispro (HumaLOG) vial - multi-dose SQ SCH (13:47)
--- NOTE | 2022-12-24 15:07 | NUR ---
DM consult: Pt POD #1 s/p left BKA. Pt seen at bedside with daughter present who translated. Pt reportedly with no known h/o DM, informed RN. Pt/family provided with written and verbal low tyramine nutrition therapy education and verbal high protein education. Pt reports a low appetite and no desire to eat. Food preferences were obtained and d/w dietary, see below. Pt states she dislikes Ensure and wishes to no longer receive, d/w RN. Pt denies food allergies or difficulty chewing/swallowing. RD contact information provided and pt/family encouraged to reach out if needed. TC with RN later who states she discussed DM with pt who reports having DM x 20 years and takes insulin. Will f/u at another time for DM education. Will continue to follow closely. Addendum: 12/24/22 at [address] Amended: Links added.
--- NOTE | 2022-12-24 15:09 | NUR ---
DM consult: Pt POD #1 s/p left BKA. Pt seen at bedside with daughter present who translated. Pt reportedly with no known h/o DM, informed RN. Pt/family provided with written and verbal low tyramine nutrition therapy education and verbal high protein education. Pt reports a low appetite and no desire to eat. Food preferences were obtained and d/w dietary, see below. Pt states she dislikes Ensure and wishes to no longer receive, d/w RN. Pt denies food allergies or difficulty chewing/swallowing. RD contact information provided and pt/family encouraged to reach out if needed. TC with RN later who states she discussed DM with pt who reports having DM x 20 years and takes insulin. Will f/u at another time for DM education. Will continue to follow closely. Recommendations: 1) Continue CHO controlled diet 2) No Ensure, pt dislikes; consider Diallo smoothie BIDBD for wound healing 3) [place] food preferences: No red meat or scrambled eggs; hard boiled egg WB, yogurt and gelatin TID, chicken breast with gravy/sauces on the side 4) Routine bowel care 5) Weekly scaled weights 6) DM nutrition therapy educations once appropriate; A1c 10.1%; Per RN pt with DM x 20 years and takes insulin Addendum: 12/24/22 at [address] Amended: Links added.
[2022-12-24] MEDS: amox tr/potassium clavulanate 875/125mg TAB PO SCH (17:29)
[2022-12-24] MEDS ORDERED: lactose-reduced food (Ensure High Protein) 237ml bottle PO SCH (17:30)
--- NOTE | 2022-12-24 17:38 | NUR ---
patient medicated x1 with [place] with good result. Seen by Dr Watkins. ABX changed. family present
[2022-12-24 18:00] VITALS: BP 138/62
--- NOTE | 2022-12-24 18:52 | NUR ---
Problems reprioritized. Patient report given, questions answered & plan of care reviewed with Abdullahi PATTON.
--- NOTE | 2022-12-24 18:55 | NUR ---
Patient in room [facility]. I have received report from FELIPE PATTON and had the opportunity to ask questions and assume patient care.
[2022-12-24] MEDS: enoxaparin 40mg/0.4ml syringe SQ SCH (20:00)
[2022-12-24] MEDS: ondansetron/PF 4mg/2ml inj IV PRN (20:40)
[2022-12-24] MEDS: polyethylene glycol 3350 17gm powd pack PO SCH (20:46)
[2022-12-24] MEDS: insulin glargine (Lantus) pen - multi-dose SQ SCH (21:42)
[2022-12-24 22:00] VITALS: BP 127/64
[2022-12-25] VITALS (7 sets, daily range): BP systolic 92–148; BP diastolic 57–73
[2022-12-25 05:54] LABS: BASOPHILS % (AUTO) 0.9 % (0-1); EOSINOPHILS % (AUTO) 0.6 % (0-6); LYMPHOCYTES # (AUTO) 0.9 X10'3 (1.1-4.8); LYMPHOCYTES % (AUTO) 20.6 % (21-51); MEAN CORPUSCULAR HEMOGLOBIN 28.4 PG (27.0-31.0); MEAN CORPUSCULAR HGB CONC 32.4 g/dL (33.0-36.5); MEAN CORPUSCULAR VOLUME 87.7 FL (78-98); MONOCYTES # (AUTO) 0.2 X10'3 (0-0.9); MONOCYTES % (AUTO) 3.4 % (2-12); NEUTROPHILS # (AUTO) 3.3 X10'3 (1.8-7.7); NEUTROPHILS % (AUTO) 74.5 % (42-75); PLATELET COUNT 65 X10'3 (140-440); RED BLOOD COUNT 2.39 X10'6 (4.20-5.60); RED CELL DISTRIBUTION WIDTH 16.1 % (11.5-14.5); WHITE BLOOD COUNT 4.4 X10'3 (4.5-11.0)
[2022-12-25 06:06] LABS: ALANINE AMINOTRANSFERASE 6 U/L (12-78); ALBUMIN 1.6 G/DL (3.4-5.0); ALBUMIN/GLOBULIN RATIO 0.4 (1.1-1.5); ALKALINE PHOSPHATASE 345 IU/L (46-116); ANION GAP 10 (8-16); ASPARTATE AMINO TRANSFERASE 17 U/L (10-37); BILIRUBIN,TOTAL 0.4 MG/DL (0.1-1.0); BLOOD UREA NITROGEN 15 MG/DL (7-18); BUN/CREATININE RATIO 18.3 (6.6-38.0); CALCIUM 7.8 MG/DL (8.5-10.1); CHLORIDE 107 MMOL/L (99-107); CREATININE 0.82 MG/DL (0.40-0.90); GLUCOSE 195 MG/DL (70-104); MAGNESIUM 1.6 MG/DL (1.5-2.4); POTASSIUM 3.7 MMOL/L (3.5-5.1); SODIUM 139 MMOL/L (135-145); TOTAL CARBON DIOXIDE 22.1 MMOL/L (24-32); eGFR 70 ML/MIN
[2022-12-25 06:08] LABS: HEMOGLOBIN 6.8 g/dl (12.0-16.0)
--- NOTE | 2022-12-25 06:18 | NUR ---
PAGED AND TALKED TO DR. STEVENS ABOUT CRITICAL HGB 6.8 AND HCT 21.0 WITH ORDER TO DO OCCULT BLOOD AND INFORM DAYTIME HOSPITALIST.
--- NOTE | 2022-12-25 06:40 | NUR ---
Problems reprioritized. Patient report given, questions answered & plan of care reviewed with GALE ROMERO.
--- NOTE | 2022-12-25 06:51 | NUR ---
Patient in room [facility] 346. I have received report from Kisha Beard RN and had the opportunity to ask questions and assume patient care.
--- NOTE | 2022-12-25 07:00 | NUR ---
Dr. Cantu was informed of hemaglobin being 6.8 and hematocrit of 21.0 and gave order to infuse 1 unit of blood and DC Lovenox.
[2022-12-25] MEDS: K and/or MAG REPLACEMENT MC SCH ×2 (08:00→20:00)
[2022-12-25] MEDS: docusate sod 100mg capsule PO SCH ×2 (08:01→21:09)
[2022-12-25] MEDS: amox tr/potassium clavulanate 875/125mg TAB PO SCH ×2 (08:02→17:07)
[2022-12-25] MEDS: lactobacillus rhamnosus 10,000 MMU CELLS/CAPSULE PO SCH ×2 (08:02→21:03)
[2022-12-25] MEDS: metoprolol tartrate 25mg tablet PO SCH ×2 (08:05→21:04)
[2022-12-25] MEDS: insulin Lispro (HumaLOG) vial - multi-dose SQ SCH ×2 (09:28→14:26)
[2022-12-25] MEDS: HYDROcodone/acetaminophen 10/325mg tab PO PRN (10:19)
--- NOTE | 2022-12-25 13:31 | NUR ---
F/u 12/25: Pt/family seen by RD for written/verbal DM diet ed w/ verbal high protein diet ed and RD contact information provided; family assistance w/ translation. Pt reports has not had DM diet ed in past; RD encouraged pt/family to request RD this admit if questions and contact dietitian's office after discharge if further nutrition questions/concerns. Pt is agreeable to strawberry Diallo smoothie BIDBL which was ordered by PA today; dietary notified. Pt does report feeling full quickly following meals is having regular BM's including today though occasional nausea as well. RD reviewed nutrition strategies to assist w/ meal digestion w/ pt/family. Recommendations: 1) Continue CHO controlled diet; encourage PO 2) [place] Diallo smoothie BIDBL for wound healing; encourage PO 3) [place] food preferences: No red meat or scrambled eggs; hard boiled egg WB, yogurt and gelatin TID, chicken breast with gravy/sauces on the side 4) Routine bowel care 5) Weekly scaled weights Addendum: 12/25/22 at [address] Amended: Links added.
--- NOTE | 2022-12-25 13:53 | NUR ---
Patient received 1 unit of blood with RN present. Patient tolerated blood transfusion well.
[2022-12-25] MEDS: JUVEN Smoothie Arginine/Glut./Ca2+Bmb (Juven 19.3pkt) 240ml cup PO SCH (17:30)
--- NOTE | 2022-12-25 18:28 | NUR ---
Problems reprioritized. Patient report given, questions answered & plan of care reviewed with Kisha Beard RN.
[2022-12-25] MEDS: ondansetron/PF 4mg/2ml inj IV PRN (18:44)
[2022-12-25 18:45] LABS: HEMATOCRIT 27.6 % (35.0-45.0); MEAN CORPUSCULAR HEMOGLOBIN 28.2 PG (27.0-31.0); MEAN CORPUSCULAR HGB CONC 32.5 g/dL (33.0-36.5); MEAN CORPUSCULAR VOLUME 86.8 FL (78-98); MEAN PLATELET VOLUME 8.4 FL (7.4-10.4); PLATELET COUNT 74 X10'3 (140-440); RED BLOOD COUNT 3.18 X10'6 (4.20-5.60); RED CELL DISTRIBUTION WIDTH 15.8 % (11.5-14.5); WHITE BLOOD COUNT 4.3 X10'3 (4.5-11.0)
[2022-12-25] MEDS: normal saline 1000ml 1,000 ML IV SCH (19:30)
[2022-12-25] MEDS: polyethylene glycol 3350 17gm powd pack PO SCH (21:09)
[2022-12-25] MEDS: insulin glargine (Lantus) pen - multi-dose SQ SCH (21:15)
[2022-12-26 06:00] VITALS: BP 138/81
[2022-12-26] MEDS: normal saline 1000ml 1,000 ML IV SCH (06:10)
[2022-12-26 06:16] LABS: BASOPHILS % (AUTO) 1.2 % (0-1); EOSINOPHILS # (AUTO) 0.1 X10'3 (0-0.9); EOSINOPHILS % (AUTO) 1.5 % (0-6); HEMATOCRIT 26.2 % (35.0-45.0); HEMOGLOBIN 8.7 g/dl (12.0-16.0); LYMPHOCYTES # (AUTO) 1.1 X10'3 (1.1-4.8); LYMPHOCYTES % (AUTO) 30.5 % (21-51); MEAN CORPUSCULAR HEMOGLOBIN 28.7 PG (27.0-31.0); MEAN CORPUSCULAR HGB CONC 33.3 g/dL (33.0-36.5); MEAN CORPUSCULAR VOLUME 86.2 FL (78-98); MEAN PLATELET VOLUME 8.5 FL (7.4-10.4); MONOCYTES # (AUTO) 0.2 X10'3 (0-0.9); MONOCYTES % (AUTO) 5.4 % (2-12); NEUTROPHILS # (AUTO) 2.2 X10'3 (1.8-7.7); NEUTROPHILS % (AUTO) 61.4 % (42-75); PLATELET COUNT 61 X10'3 (140-440); RED BLOOD COUNT 3.04 X10'6 (4.20-5.60); RED CELL DISTRIBUTION WIDTH 15.8 % (11.5-14.5); WHITE BLOOD COUNT 3.6 X10'3 (4.5-11.0)
--- NOTE | 2022-12-26 06:30 | NUR ---
Problems reprioritized. Patient report given, questions answered & plan of care reviewed with TATIANA PATTON.
--- NOTE | 2022-12-26 06:38 | NUR ---
Patient in room [facility]. I have received report from Kisha Beard and had the opportunity to ask questions and assume patient care.
[2022-12-26 06:39] LABS: ALANINE AMINOTRANSFERASE 7 U/L (12-78); ALBUMIN 1.7 G/DL (3.4-5.0); ALBUMIN/GLOBULIN RATIO 0.4 (1.1-1.5); ALKALINE PHOSPHATASE 313 IU/L (46-116); ANION GAP 8 (8-16); ASPARTATE AMINO TRANSFERASE 18 U/L (10-37); BILIRUBIN,TOTAL 0.5 MG/DL (0.1-1.0); BLOOD UREA NITROGEN 12 MG/DL (7-18); CHLORIDE 109 MMOL/L (99-107); CREATININE 0.75 MG/DL (0.40-0.90); GLUCOSE 79 MG/DL (70-104); MAGNESIUM 1.6 MG/DL (1.5-2.4); POTASSIUM 3.5 MMOL/L (3.5-5.1); SODIUM 141 MMOL/L (135-145); TOTAL CARBON DIOXIDE 24.4 MMOL/L (24-32); TOTAL PROTEIN 6.2 G/DL (6.4-8.2); eGFR 78 ML/MIN
[2022-12-26] MEDS: K and/or MAG REPLACEMENT MC SCH (06:47)
[2022-12-26 07:58] LABS: ELLIPTOCYTES FEW; PLATELET ESTIMATE DECREASED; SCHISTOCYTES FEW
[2022-12-26 07:59] LABS: HYPOCHROMASIA 1+; POLYCHROMASIA FEW
[2022-12-26] MEDS: docusate sod 100mg capsule PO SCH (08:00)
[2022-12-26] MEDS: amox tr/potassium clavulanate 875/125mg TAB PO SCH (08:02)
[2022-12-26] MEDS: metoprolol tartrate 25mg tablet PO SCH (08:02)
[2022-12-26] MEDS: lactobacillus rhamnosus 10,000 MMU CELLS/CAPSULE PO SCH (08:02)
[2022-12-26] MEDS: JUVEN Smoothie Arginine/Glut./Ca2+Bmb (Juven 19.3pkt) 240ml cup PO SCH (08:02)
[2022-12-26 11:15] VITALS: BP 165/80
--- NOTE | 2022-12-26 11:25 | NUR ---
LM for Dr. Erickson regarding discharging pt home with family.
--- NOTE | 2022-12-26 11:46 | NUR ---
NENO Erickson who approved pt discharging home with family. Pt to follow up with at [facility] in 2 weeks, on 01/06/23.
--- NOTE | 2022-12-26 12:06 | NUR ---
PAGER ID: [phone] MESSAGE: Jill Martinez in 346[address] - Dr. Dre valenzuela with pt discharging with family. F/U with him at wound clinic on 01/06 -Deepa [id number]
[2022-12-26] MEDS ORDERED: LOP25T PO (14:07)
[2022-12-26] MEDS ORDERED: HYDR-3972 PO ×3 (14:07→14:54)
[2022-12-26] MEDS: HYDROcodone/acetaminophen 10/325mg tab PO PRN (15:47)
== END 2022-12-26 16:30 | disposition home health service (06) | DRG 711 ==
LOC: SUR 3N 10:42 → UNDOADMIN 12:22
PROVIDERS: ADMIT Family Medicine; ATTEND Family Medicine
PROC: 0JBR0ZZ Excision of Left Foot Subcutaneous Tissue and Fascia, Open Approach (ICD-10-PCS; 2022-12-19)
PROC: 30233N1 Transfusion of Nonautologous Red Blood Cells into Peripheral Vein, Percutaneous Approach (ICD-10-PCS; 2022-12-20)
PROC: 0Y6J0Z3 Detachment at Left Lower Leg, Low, Open Approach (ICD-10-PCS; principal; 2022-12-23 15:01)
DX: T81.42XA Infection following a procedure, deep incisional surgical site, initial encounter (principal); E11.52 Type 2 diabetes mellitus with diabetic peripheral angiopathy with gangrene; D63.8 Anemia in other chronic diseases classified elsewhere; G54.6 Phantom limb syndrome with pain; L03.116 Cellulitis of left lower limb; N28.9 Disorder of kidney and ureter, unspecified; I10 Essential (primary) hypertension; Y83.8 Other surgical procedures as the cause of abnormal reaction of the patient, or of later complication, without mention of misadventure at the time of the procedure; R53.83 Other fatigue; K59.00 Constipation, unspecified; Z79.4 Long term (current) use of insulin; Z79.899 Other long term (current) drug therapy; Y92.89 Other specified places as the place of occurrence of the external cause
CPT/HCPCS: 36415; 36430; 71045; 80053; 82948; 83036; 83540; 83550; 83605; 83735; 84145; 85007; 85008; 85025; 85027; 85610; 85651; 85730; 86140; 86885; 86900; 86901; 86920; 87070; 87075; 87081; 93005; 97162; 97530; A4618; A6222; A6223; A6243; A6446; A6449; A7000; G0378; J0690; J1170; J1650; J1815; J2250; J2270; J2405; J2704; J3010; J3370; J3490; J7030; J7040; P9016

== ENCOUNTER 2024-03-07 17:27 | Emergency (ER) | payer MEDICAID ==
[~2024-03-07] VITALS: Ht 157.5 cm; Wt 63.6 kg
[~2024-03-07 17:27] MED LIST changes: +GABA-530 PO; +HYDR-3972 PO; +INSU100V9 SQ; -LINE600T12 PO; +LOP25T PO
[2024-03-07 18:50] LABS: BASOPHILS # (AUTO) 0.1 X10'3 (0-0.2); BASOPHILS % (AUTO) 0.8 % (0-1); EOSINOPHILS # (AUTO) 0.1 X10'3 (0-0.9); EOSINOPHILS % (AUTO) 1.5 % (0-6); HEMATOCRIT 28.3 % (35.0-45.0); HEMOGLOBIN 9.8 g/dl (12.0-16.0); LYMPHOCYTES # (AUTO) 2.5 X10'3 (1.1-4.8); LYMPHOCYTES % (AUTO) 25.9 % (21-51); MEAN CORPUSCULAR HEMOGLOBIN 31.7 PG (27.0-31.0); MEAN CORPUSCULAR HGB CONC 34.5 g/dL (33.0-36.5); MEAN CORPUSCULAR VOLUME 91.9 FL (78-98); MEAN PLATELET VOLUME 8.4 FL (7.4-10.4); MONOCYTES # (AUTO) 0.5 X10'3 (0-0.9); MONOCYTES % (AUTO) 5.2 % (2-12); NEUTROPHILS # (AUTO) 6.5 X10'3 (1.8-7.7); NEUTROPHILS % (AUTO) 66.6 % (42-75); PLATELET COUNT 254 X10'3 (140-440); RED BLOOD COUNT 3.08 X10'6 (4.20-5.60); RED CELL DISTRIBUTION WIDTH 13.8 % (11.5-14.5); WHITE BLOOD COUNT 9.8 X10'3 (4.5-11.0)
[2024-03-07 19:18] LABS: ALBUMIN 2.2 G/DL (3.4-5.0); ANION GAP 7 (8-16); BLOOD UREA NITROGEN 11 MG/DL (7-18); BUN/CREATININE RATIO 11.5 (10.0-20.0); CALCIUM 8.3 MG/DL (8.5-10.1); CHLORIDE 106 MMOL/L (99-107); CREATININE 0.96 MG/DL (0.40-0.90); GLUCOSE 172 MG/DL (70-104); PRO BRAIN NATRIURETIC PEPTIDE 958 PG/ML (0-125); SODIUM 140 MMOL/L (135-145); TOTAL CARBON DIOXIDE 26.6 MMOL/L (24-32); eCRCL 46 ML/MIN; eGFR 58 ML/MIN
[2024-03-07] MEDS ORDERED: apixaban 5mg tablet PO STA (21:09)
[2024-03-07] MEDS ORDERED: LEVO-65 PO (22:27)
[2024-03-07] MEDS ORDERED: OMEP40CA21 PO (22:27)
[2024-03-07] MEDS: levoFLOXACIN 250mg tablet PO ONE (22:37)
[2024-03-07] MEDS: pantoprazole 40mg Tablet.DR PO STA (22:38)
[2024-03-07 22:42] VITALS: BP 161/78; PULSE 85; RESP 18; TEMP 98.2; O2SAT 100
== END 2024-03-07 22:46 | disposition home or self-care (01) ==
LOC: ER 17:28
DX: R13.10 Dysphagia, unspecified (principal); R05.1 Acute cough; R06.02 Shortness of breath; E11.9 Type 2 diabetes mellitus without complications; R11.10 Vomiting, unspecified; I10 Essential (primary) hypertension; Z98.890 Other specified postprocedural states; Z79.899 Other long term (current) drug therapy
CPT/HCPCS: 36415; 71045; 71250; 80048; 83880; 84145; 84484; 85025; 93005; 99285